=== PATIENT | male | born 1980 | race Caucasian/White ===

== ENCOUNTER 2017-12-20 18:28 | Emergency (ER) | payer SELFPAY ==
[2017-12-20] MEDS ORDERED: Dexamethasone 10 MG/ML VIAL ONE (19:40)
== END 2017-12-20 19:54 | disposition home or self-care (01) ==
LOC: MADERS 18:28
DX: L23.7 Allergic contact dermatitis due to plants, except food (principal); J45.909 Unspecified asthma, uncomplicated
CPT/HCPCS: 96372; J1100